=== PATIENT | female | born 1980 | race Caucasian/White ===

== ENCOUNTER → 2018-04-25 | Outpatient (CLI) | payer BC ==
[2018-04-25] MEDS: GADOBUTROL 7.5 MMOL/7.5 ML VIAL IV (09:33)
== END | disposition home or self-care (01) ==
LOC: KCIC MRI 08:29
DX: Q07.00 Arnold-Chiari syndrome without spina bifida or hydrocephalus (principal)
CPT/HCPCS: 70553; A9585